=== PATIENT | female | born 2000 | race Caucasian/White ===

== ENCOUNTER 2019-07-15 12:42 | Emergency (ER) | payer OTHER ==
[2019-07-15 12:55] VITALS: BP 125/84; PULSE 105
--- NOTE | 2019-07-15 13:37 | EDM.PDOC ---
<Kena Carcamo - Last Filed: 07/15/19 13:39> ED HPI GENERAL MEDICAL PROBLEM - General Chief Complaint: Chest Pain Stated Complaint: CHEST PAIN Time Seen by Provider: 07/15/19 12:57 Source of Information: Reports: Patient History Limitations: Reports: No Limitations - History of Present Illness INITIAL COMMENTS - FREE TEXT/NARRATIVE: Amanda is a 18 year old female presenting to the ED for evaluation of left arm pain. The pain started at about 10 last night and woke her up from sleep. The pain is a dull, throbbing pain that has started to radiate to her shoulder and neck. The pain comes and goes. When she is in pain, it lasts about 45 minutes. She has not found anything that makes the pain better, but does say that when she eats during these pain attacks it makes the pain much worse. She denies any swelling, weakness, loss of range of motion, numbness and tingling. - Related Data Allergies Allergy/AdvReac Type Severity Reaction Status Date / Time No Known Allergies Allergy Verified 07/15/19 12:59 Home Meds: Home Meds . [No Known Home Meds] 07/15/19 [History] ED ROS GENERAL - Review of Systems Review Of Systems: See Below Constitutional: Reports: No Symptoms HEENT: Reports: No Symptoms Respiratory: Reports: No Symptoms Cardiovascular: Reports: No Symptoms Endocrine: Reports: No Symptoms GI/Abdominal: Reports: No Symptoms : Reports: No Symptoms Musculoskeletal: Reports: Shoulder Pain, Arm Pain (left elbow pain) Skin: Reports: No Symptoms Neurological: Reports: No Symptoms Psychiatric: Reports: No Symptoms Hematologic/Lymphatic: Reports: No Symptoms Immunologic: Reports: No Symptoms ED EXAM, GENERAL - Physical Exam Exam: See Below Exam Limited By: No Limitations General Appearance: Alert, WD/WN, No Apparent Distress Head: Atraumatic, Normocephalic Neck: Normal Inspection, Supple, Non-Tender, Full Range of Motion Respiratory/Chest: No Respiratory Distress, Lungs Clear, Normal Breath Sounds, No Accessory Muscle Use, Chest Non-Tender Cardiovascular: Normal Peripheral Pulses, Regular Rate, Rhythm, No Edema, No Gallop, No JVD, No Murmur, No Rub Extremities: Normal Inspection, Normal Range of Motion, Non-Tender, Normal Capillary Refill, No Pedal Edema Neurological: Alert, Oriented, Normal Cognition Psychiatric: Normal Affect, Normal Mood Skin Exam: Warm, Dry, Intact, Normal Color, No Rash Lymphatic: No Adenopathy Course - Vital Signs Last Recorded V/S: Last Vital Signs Temp 97.9 F 07/15/19 12:51 Pulse 105 H 07/15/19 12:51 Resp 16 07/15/19 12:51 BP 125/84 07/15/19 12:51 Pulse Ox 98 07/15/19 12:51 Departure - Departure Disposition: Home, Self-Care 01 Clinical Impression: Atypical chest pain, Cervical radiculopathy Referrals: PCP,None [Primary Care Provider] - Forms: ED Department Discharge Additional Instructions: Advil or ibuprofen 600 mg 2-3 times daily with food, you may take Tylenol in between doses for extra pain relief if needed, alternate ice and heat as needed. Follow-up with your regular clinic provider in 3-4 days of discomfort not resolving over the next 1-3 days as expected, return to ED as needed if symptoms worsening in any way. <Andres Slaughter - Last Filed: 07/15/19 14:11> ED HPI GENERAL MEDICAL PROBLEM - General Source of Information: Reports: Patient Left Chest Pain Score (Numeric/FACES): 7 Past Medical History - Past Health History Medical/Surgical History: Denies Medical/Surgical History Psychiatric History: Reports: Depression Social & Family History - Family History Family Medical History: Noncontributory - Tobacco Use Smoking Status *Q: Never Smoker Second Hand Smoke Exposure: No - Caffeine Use Caffeine Use: Reports: Coffee, Soda - Recreational Drug Use Recreational Drug Use: No Course - Re-Assessments/Exams Free Text/Narrative Re-Assessment/Exam: 07/15/19 14:10 Initial hx and exam was done by LORA Richards student. I agree with hx and exam as documented. I also did examine and interview patient. Her elboow, arm shoulder as well as heart and lung exam very normal. Discharge instr. as documented. Departure - Departure Time of Disposition: 13:33 Condition: Fair
== END 2019-07-15 14:36 | disposition home or self-care (01) ==
LOC: JD.ED 12:42
DX: M54.12 Radiculopathy, cervical region (principal); R07.89 Other chest pain
CPT/HCPCS: 99284

== ENCOUNTER 2021-07-10 09:19 | Emergency (ER) | payer OTHER ==
[2021-07-10] MEDS ORDERED: Sodium Chloride 0.9% 10 ML Syringe FLUSH PRN (09:26)
[2021-07-10] MEDS ORDERED: Sodium Chloride 0.9% 1,000 ML IV SCH (09:30)
--- NOTE | 2021-07-10 10:23 | EDM.PDOCBH ---
ED HPI GENERAL MEDICAL PROBLEM - General Chief Complaint: Behavioral/Psych Stated Complaint: [facility] Time Seen by Provider: 07/10/21 09:26 Source of Information: Reports: Patient, Family History Limitations: Reports: No Limitations - History of Present Illness INITIAL COMMENTS - FREE TEXT/NARRATIVE: The patient presents by [facility] for an overdose. She says she took about 13 alprazolam 1mg pills at around 9am. She also took some abilify 7.5mg pills. She is not sure of how many she took of those. She has tried to hurt her self by overdosing in the past. She was never hospitalized for it. She has been more stressed and depressed lately. She did not take any other drugs. She did drink a beer this morning. She has no fever, chills, cough, chest pain, shortness of breath, abdominal pain, nausea or vomiting. Onset: Sudden Duration: Minutes: (45) Severity: Moderate Improves with: Reports: None Worsens with: Reports: None Associated Symptoms: Reports: No Other Symptoms - Related Data Allergies Allergy/AdvReac Type Severity Reaction Status Date / Time No Known Allergies Allergy Verified 07/10/21 09:26 Home Meds: Home Meds ALPRAZolam [Alprazolam] 0.5 - 1 mg PO BID PRN 07/10/21 [History] ARIPiprazole [Abilify] 7.5 mg PO DAILY 07/10/21 [History] Past Medical History - Past Health History Medical/Surgical History: Denies Medical/Surgical History Psychiatric History: Reports: Depression, PTSD, Suicide Attempt, Suicidal Idea tion Social & Family History - Family History Family Medical History: No Pertinent Family History - Tobacco Use Tobacco Use Status *Q: Never Tobacco User - Caffeine Use Caffeine Use: Reports: Coffee, Soda - Recreational Drug Use Recreational Drug Use: No ED ROS GENERAL - Review of Systems Review Of Systems: See Below Constitutional: Reports: No Symptoms HEENT: Reports: No Symptoms Respiratory: Reports: No Symptoms Cardiovascular: Reports: No Symptoms Endocrine: Reports: No Symptoms GI/Abdominal: Reports: No Symptoms : Reports: No Symptoms Musculoskeletal: Reports: No Symptoms Skin: Reports: No Symptoms Neurological: Reports: No Symptoms Psychiatric: Reports: Depression, Suicidal Ideation ED EXAM, BEHAVIORAL HEALTH - Physical Exam Exam: See Below Exam Limited By: No Limitations General Appearance: Alert, No Apparent Distress Ears: Normal External Exam Nose: Normal Inspection Head: Atraumatic, Normocephalic Neck: Normal Inspection Respiratory/Chest: No Respiratory Distress, Lungs Clear, Normal Breath Sounds Cardiovascular: Regular Rate, Rhythm, No Edema, No Murmur GI/Abdominal: Soft, Non-Tender, No Organomegaly, No Mass Extremities: Normal Inspection Neurological: Other (she is slightly drowsy) #1 Interpretation EKG Date: 07/10/21 Time: 09:50 Rhythm: Other (sinus tachycardia) Rate (Beats/Min): 101 [place]: Normal P-Wave: Present QRS: Normal ST-T: Normal QT: Normal COURSE, BEHAVIORAL HEALTH COMP - Course Vital Signs: Last Vital Signs Temp 98.6 F 07/10/21 09:23 Pulse 92 07/10/21 13:48 Resp 20 07/10/21 13:48 BP 99/73 07/10/21 13:48 Pulse Ox 98 07/10/21 13:48 Orders, Labs, Meds: Active Orders 24 hr Category Date Time Status Cardiac Monitoring [RC] . DIRECTED Care 07/10/21 09:26 Active Peripheral IV Care [RC] . DIRECTED Care 07/10/21 09:27 Active Suicide Precautions [RC] Q15M Care 07/10/21 09:33 Active Sodium Chloride 0.9% [Normal Saline] 1,000 ml Med 07/10/21 09:30 Active IV ASDIRECTED Sodium Chloride 0.9% [Saline Flush] Med 07/10/21 09:26 Active 10 ml FLUSH ASDIRECTED PRN Peripheral IV Insertion Adult [OM.PC] Stat Oth 07/10/21 09:26 Ordered Medication Orders Sodium Chloride (Normal Saline) 1,000 mls @ 125 mls/hr IV ASDIRECTED ISAIAH Last Admin: 07/10/21 09:45 Dose: 125 mls/hr Documented by: [id number] Sodium Chloride (Sodium Chloride 0.9% 10 Ml Syringe) 10 ml FLUSH ASDIRECTED PRN PRN Reason: Keep Vein Open Last Admin: 07/10/21 09:45 Dose: 10 ml Documented by: [id number] Laboratory Tests 07/10/21 07/10/21 07/10/21 Range/Units 09:49 09:49 09:49 WBC 6.59 (3.98-10.04) K/mm3 RBC 5.06 (3.98-5.22) M/mm3 Hgb 15.0 (11.2-15.7) gm/dl Hct 44.5 (34.1-44.9) % MCV 87.9 (79.4-94.8) fl MCH 29.6 (25.6-32.2) pg MCHC 33.7 (32.2-35.5) g/dl RDW Std Deviation 42.0 (36.4-46.3) fL Plt Count 333 (182-369) K/mm3 MPV 9.7 (9.4-12.3) fl Neut % (Auto) 72.8 H (34.0-71.1) % Lymph % (Auto) 17.6 L (19.3-51.7) % [place] % (Auto) 8.3 (4.7-12.5) % Eos % (Auto) 0.9 (0.7-5.8) Baso % (Auto) 0.2 (0.1-1.2) % Neut # (Auto) 4.80 (1.56-6.13) K/mm3 Lymph # (Auto) 1.16 L (1.18-3.74) K/mm3 [place] # (Auto) 0.55 H (0.24-0.36) K/mm3 Eos # (Auto) 0.06 (0.04-0.36) K/mm3 Baso # (Auto) 0.01 (0.01-0.08) K/mm3 Sodium 136 (136-145) mEq/L Potassium 3.8 (3.5-5.1) mEq/L Chloride 101 (98-107) mEq/L Carbon Dioxide 28 (21-32) mEq/L Anion Gap 10.8 (5-15) BUN 13 (7-18) mg/dL Creatinine 1.0 (0.55-1.02) mg/dL Est Cr Clr Drug Dosing 73.00 mL/min Estimated GFR (MDRD) > 60 (>60) mL/min BUN/Creatinine Ratio 13.0 L (14-18) Glucose 128 H (70-99) mg/dL Calcium 8.7 (8.5-10.1) mg/dL Total Bilirubin 0.4 (0.2-1.0) mg/dL AST 31 (15-37) U/L ALT 50 (14-59) U/L Alkaline Phosphatase 82 (46-116) U/L Total Protein 7.4 (6.4-8.2) g/dl Albumin 3.6 (3.4-5.0) g/dl Globulin 3.8 gm/dL Albumin/Globulin Ratio 1.0 (1-2) TSH 3rd Generation 0.766 (0.358-3.74) uIU/mL HCG, Qual (NEGATIVE) Salicylates 1.0 L (2.8-20) mg/dL Urine Opiates Screen (BDXPHB=849) Ur Buprenorphine Scrn (CUTOFF=10) Ur Oxycodone Screen (VTE5KQ=487) Urine Methadone Screen (KMKIRJ=662) Ur Propoxyphene Screen (GIHILU=909) Acetaminophen 0 L (10-30) ug/mL Ur Barbiturates Screen (UUHOGS=774) Ur Tricyclics Screen (CAIJTF=959) Ur Phencyclidine Scrn (CUTOFF=25) Ur Amphetamine Screen (BROACN=459) U Methamphetamines Scrn (AKYNBC=471) U Benzodiazepines Scrn (TFFFED=002) U Cocaine Metab Screen (YOQLPK=495) U Marijuana (THC) Screen (CUTOFF=50) Ethyl Alcohol 0.00 (0.00) gm% SARS-CoV-2 RNA (JOCELYN) (NEGATIVE) 07/10/21 07/10/21 07/10/21 Range/Units 09:49 10:55 11:30 WBC (3.98-10.04) K/mm3 RBC (3.98-5.22) M/mm3 Hgb (11.2-15.7) gm/dl Hct (34.1-44.9) % MCV (79.4-94.8) fl MCH (25.6-32.2) pg MCHC (32.2-35.5) g/dl RDW Std Deviation (36.4-46.3) fL Plt Count (182-369) K/mm3 MPV (9.4-12.3) fl Neut % (Auto) (34.0-71.1) % Lymph % (Auto) (19.3-51.7) % [place] % (Auto) (4.7-12.5) % Eos % (Auto) (0.7-5.8) Baso % (Auto) (0.1-1.2) % Neut # (Auto) (1.56-6.13) K/mm3 Lymph # (Auto) (1.18-3.74) K/mm3 [place] # (Auto) (0.24-0.36) K/mm3 Eos # (Auto) (0.04-0.36) K/mm3 Baso # (Auto) (0.01-0.08) K/mm3 Sodium (136-145) mEq/L Potassium (3.5-5.1) mEq/L Chloride (98-107) mEq/L Carbon Dioxide (21-32) mEq/L Anion Gap (5-15) BUN (7-18) mg/dL Creatinine (0.55-1.02) mg/dL Est Cr Clr Drug Dosing mL/min Estimated GFR (MDRD) (>60) mL/min BUN/Creatinine Ratio (14-18) Glucose (70-99) mg/dL Calcium (8.5-10.1) mg/dL Total Bilirubin (0.2-1.0) mg/dL AST (15-37) U/L ALT (14-59) U/L Alkaline Phosphatase (46-116) U/L Total Protein (6.4-8.2) g/dl Albumin (3.4-5.0) g/dl Globulin gm/dL Albumin/Globulin Ratio (1-2) TSH 3rd Generation (0.358-3.74) uIU/mL HCG, Qual Negative (NEGATIVE) Salicylates (2.8-20) mg/dL Urine Opiates Screen Negative (BEBLHL=903) Ur Buprenorphine Scrn Negative (CUTOFF=10) Ur Oxycodone Screen Negative (IOE6LO=654) Urine Methadone Screen Negative (GCUDCD=981) Ur Propoxyphene Screen Negative (ONAVQA=120) Acetaminophen (10-30) ug/mL Ur Barbiturates Screen Negative (MKVCRJ=524) Ur Tricyclics Screen Negative (FXQQQY=419) Ur Phencyclidine Scrn Negative (CUTOFF=25) Ur Amphetamine Screen Negative (BRUEXA=677) U Methamphetamines Scrn Negative (SJLLCS=506) U Benzodiazepines Scrn Presumptive positive H (VIJXRI=819) U Cocaine Metab Screen Negative (VBMOHY=714) U Marijuana (THC) Screen Negative (CUTOFF=50) Ethyl Alcohol (0.00) gm% SARS-CoV-2 RNA (JOCELYN) Negative (NEGATIVE) Medications Generic Name Dose Route Start Last Admin Trade Name Freq PRN Reason Stop Dose Admin Sodium Chloride 1,000 mls @ 125 mls/hr 07/10/21 09:30 07/10/21 09:45 Normal Saline IV 125 mls/hr ASDIRECTED ISAIAH Administration Sodium Chloride 10 ml 07/10/21 09:26 07/10/21 09:45 Sodium Chloride 0.9% 10 Ml Syringe FLUSH 10 ml ASDIRECTED PRN Administration Keep Vein Open Re-Assessment/Re-Exam: I ordered an IV NS at 125ml/hr, labs, EKG, urine drug screen and COVID 19. I called poison control and they recommended labs and EKG. Both medications have [employer] depression. Alprazolam peaks in 1 to 2 hours and abilify peaks in 3 to 5 hours. Abilify can widen the QRS and prolong the QT interval. They recommended an EKG and monitor her for 5 to 6 hours. Her EKG shows a sinus tachycardia with no acute changes. We have waited the 5 to 6 hours and she great. I called [facility] in [place] and talked with the psychiatrist manager concrete Dr Head and she accepted the patient. We will send her by [facility]'s deputies. Departure - Departure Time of Disposition: 14:45 Disposition: DC/Tfer to Psych Hosp/Unit 65 Condition: Fair Clinical Impression: Depressive disorder, Suicidal ideation, Suicide attempt Drug overdose Qualifiers: Encounter type: initial encounter Injury intent: intentional self-harm Qualifie d Code(s): T50.902A - Poisoning by unspecified drugs, medicaments and biological substances, intentional self-harm, initial encounter - Discharge Information Referrals: PCP,None [Primary Care Provider] - Forms: ED Department Discharge Sepsis Event Note (ED) - Evaluation Sepsis Screening Result: No Definite Risk - Focused Exam Vital Signs: Vital Signs Temp Pulse Resp BP Pulse Ox 07/10/21 13:48 92 20 99/73 98 07/10/21 09:23 98.6 F 104 H 21 H 111/78 98 - My Orders Last 24 Hours: My Active Orders 07/10/21 09:26 Cardiac Monitoring [RC] . DIRECTED Sodium Chloride 0.9% [Saline Flush] 10 ml FLUSH ASDIRECTED PRN Peripheral IV Insertion Adult [OM.PC] Stat 07/10/21 09:27 Peripheral IV Care [RC] . DIRECTED 07/10/21 09:30 Sodium Chloride 0.9% [Normal Saline] 1,000 ml IV ASDIRECTED 07/10/21 09:33 Suicide Precautions [RC] Q15M - Assessment/Plan Last 24 Hours: My Active Orders 07/10/21 09:26 Cardiac Monitoring [RC] . DIRECTED Sodium Chloride 0.9% [Saline Flush] 10 ml FLUSH ASDIRECTED PRN Peripheral IV Insertion Adult [OM.PC] Stat 07/10/21 09:27 Peripheral IV Care [RC] . DIRECTED 07/10/21 09:30 Sodium Chloride 0.9% [Normal Saline] 1,000 ml IV ASDIRECTED 07/10/21 09:33 Suicide Precautions [RC] Q15M
[2021-07-10 10:29] LABS: ACETAMINOPHEN 0 ug/mL (10-30)
[2021-07-10 13:49] VITALS: PULSE 92
[2021-07-10 16:42] VITALS: BP 107/98
== END 2021-07-10 16:30 ==
LOC: JD.ED 09:19
DX: T43.592A Poisoning by other antipsychotics and neuroleptics, intentional self-harm, initial encounter (principal); F32.A Depression, unspecified; R00.0 Tachycardia, unspecified; Z20.822 Contact with and (suspected) exposure to COVID-19
CPT/HCPCS: 36415; 80053; 80143; 80179; 80306; 80307; 84443; 84703; 85025; 87635; 93005; 99285; J7030; U0002